=== PATIENT | male | born 1945 | race Caucasian/White ===

== ENCOUNTER 2022-04-14 22:53 | Emergency (ER) | payer SELFPAY ==
[~2022-04-14] VITALS: Ht 170.2 cm; Wt 79.4 kg
--- NOTE | 2022-04-14 23:10 | NUR ---
Patient BIB [id number] from home c/o soiled post op dressing. Family was concerned of possible dehiscense due to post op dressing from open heart surgery having a dark color and discharge. Surgery was performed 3 weeks ago in [facility].
--- NOTE | 2022-04-14 23:15 | NUR ---
Seen and examined by Dr. May. Wound care done c/o Dr. May.
--- NOTE | 2022-04-14 23:20 | NUR ---
Wound culture sent to lab.
--- NOTE | 2022-04-14 23:25 | NUR ---
Applied dressing at affected area.
--- NOTE | 2022-04-14 23:30 | NUR ---
COVID swab done and sent to lab.
--- NOTE | 2022-04-14 23:48 | NUR ---
Xray done at bedside c/o tech.
--- NOTE | 2022-04-15 01:10 | NUR ---
Patient discharged to home vioa private vehicle accompanied by family member in stable condition. VSS. NAD. Ambulatory with steady gait. Written and verbal after care instructions given. Patient verbalizes understanding of instructions. Stressed follow up or return to ER for worsening s/s.
[2022-04-15 02:37] VITALS: BP 120/80
== END 2022-04-15 01:15 | disposition home or self-care (01) ==
LOC: ER 22:56
DX: I97.622 Postprocedural seroma of a circulatory system organ or structure following other procedure (principal); J81.1 Chronic pulmonary edema; Z20.822 Contact with and (suspected) exposure to COVID-19; I51.7 Cardiomegaly; E11.9 Type 2 diabetes mellitus without complications; R94.31 Abnormal electrocardiogram [ECG] [EKG]
CPT/HCPCS: 71045; 87070; 93005; A4663